=== PATIENT | female | born 1975 | race American Indian/Alaskan Native ===

== ENCOUNTER 2016-02-26 08:19 | Emergency (ER) | payer OTHER ==
[2016-02-26 09:09] LABS: Basophils % (Auto) 0.7 % (0.0-1.8); Eosinophils % (Auto) 0.5 % (0.0-4.3); Hematocrit 41.4 % (30.3-42.9); Hemoglobin 13.5 gm/dl (10.1-14.3); Mean Corpuscular HGB Conc 33 % (30-34); Mean Corpuscular Hemoglobin 29 pg (28-32); Mean Corpuscular Volume 89 fl (79-97); Platelet Count 292 K/mm3 (140-440); Red Blood Count 4.63 M/mm3 (3.65-5.03); Red Cell Distribution Width 15.5 % (13.2-15.2); White Blood Count 4.3 K/mm3 (4.5-11.0)
[2016-02-26 09:33] LABS: Alanine Aminotransferase 27 units/L (7-56); Albumin 3.6 g/dL (3.9-5); Albumin/Globulin Ratio 1.3 %; Alkaline Phosphatase 45 units/L (35-129); Anion Gap 19 mmol/L; Bilirubin,Total 0.6 mg/dL (0.1-1.2); Blood Urea Nitrogen 5 mg/dL (7-17); Calcium 8.8 mg/dL (8.4-10.2); Carbon Dioxide 24 mmol/L (22-30); Chloride 98.4 mmol/L (98-107); Glucose 108 mg/dL (65-100); Lipase 9 units/L (13-60); Potassium 3.2 mmol/L (3.6-5.0); Sodium 138 mmol/L (137-145); Total Protein 6.4 g/dL (6.3-8.2)
[2016-02-26] MEDS ORDERED: ZOFRAN ONE ×2 (09:45→12:16)
[2016-02-26] MEDS ORDERED: ZOFRAN IV ONE ×2 (09:46→12:20)
[2016-02-26] MEDS ORDERED: NACL 0.9% 1000 ML 1,000 ML ONE (09:48)
[2016-02-26] MEDS ORDERED: NACL 0.9% 1000 ML 1,000 ML IV ONE (09:56)
[2016-02-26 10:09] LABS: Bacteria,Urine 1+ /HPF (Negative); Bilirubin,Urine NEG (Negative); Blood,Urine NEG (Negative); Ketones,Urine NEG (Negative); Leukocyte Esterase,Urine TR (Negative); Mucus,Urine 3+ /HPF; Nitrite,Urine NEG (Negative)
--- NOTE | 2016-02-26 11:01 | Emergency Department Report ---
HPI - General Chief Complaint: Abdominal Pain Time Seen by Provider: 02/26/16 10:54 - HPI HPI: Chief complaint: Muscular pain HPI: Patient is a 40-year-old female who had a gastric sleeve placed 6 months ago and states she's been sick ever since. Patient has been worked up by her surgeon and her primary care doctor and her gastric sleeve is functioning as it should she just is having the rare side effect of abdominal pain and nausea. Patient is not here for that stay but rather states for the last 3 days she's been having pain to her legs and arms and feet. Describes it as a sharp pain. There is no swelling or edema. There is no fever or erythema. Patient is not on any cholesterol medications. Patient does not have diabetes. Patient states she cannot take morphine but can take Dilaudid Mode of arrival: private car Source: Patient Began: 3 days Duration: 3 days Context: See above. Quality: Sharp Severity: 10 out of 10 Improved with: Nothing Worsened with: Palpation Associated signs and symptoms: See above ED Past Medical Hx - Past Medical History Previous Medical History?: Yes Additional medical history: Internal hematomas from gallbladder surgery - Surgical History Past Surgical History?: Yes Hx Cholecystectomy: Yes Additional Surgical History: Gastric sleeve - Social History Smoking Status: Never Smoker Substance Use Type: Non Opiate Pain, Prescribed - Medications Home Medications: Home Medications Medication Instructions Recorded Confirmed Last Taken Type traMADol [Ultram 50 MG tab] 50 mg PO Q6HR PRN #10 tablet 02/26/16 Unknown Rx ED Review of Systems ROS: Stated complaint: ABD PAIN /FEET/LEG PAIN Other details as noted in HPI ROS Constitutional: No fever ENT: No uri symptoms Cardiovascular: No chest pain Respiratory: No sob or cough GI: No diarrhea, chronic nausea : No dysuria frequency or urgency, Skin: No rash Neuro: No focal weakness or numbness Psych: No depression Ye/lymph: No edema Physical Exam - Physical Exam Vital Signs: Vital Signs 02/26/16 02/26/16 02/26/16 08:30 09:16 09:31 Temperature 98.3 F Pulse Rate 150 H 112 H Respiratory 20 13 Rate Blood Pressure 155/121 145/93 145/93 O2 Sat by Pulse 99 100 Oximetry Physical Exam: GENERAL: The patient is well-developed well-nourished . HEENT: Normocephalic. Atraumatic. Extraocular motions are intact. Patient has moist mucous membranes. NECK: Supple. No meningitic signs are noted. There is no adenopathy noted. CHEST/LUNGS: Clear to auscultation. There is no respiratory distress noted. HEART/CARDIOVASCULAR: Regular. There is no tachycardia. There is no gallop rub or murmur. ABDOMEN: Abdomen is soft, nontender. Patient has normal bowel sounds. There is no abdominal distention. SKIN: There is no rash. There is no edema. There is no diaphoresis. NEURO: The patient is awake, alert, and oriented. The patient is cooperative. The patient has no focal neurologic deficits. The patient has normal speech. MUSCULOSKELETAL: There is no deformity. Patient complains of tenderness with palpation. There is no limitation range of motion. There is no evidence of acute injury. ED Course Vital Signs 02/26/16 02/26/16 02/26/16 08:30 09:16 09:31 Temperature 98.3 F Pulse Rate 150 H 112 H Respiratory 20 13 Rate Blood Pressure 155/121 145/93 145/93 O2 Sat by Pulse 99 100 Oximetry - Reevaluation(s) Reevaluation #1: 02/26/16 11:33 Patient offered Reglan but states it makes her heart rate too fast. Patient is allergic to Toradol. Patient states morphine gives her indigestion. Patient will take Percocet for her pain. Reevaluation #2: 02/26/16 11:34 Patient given a liter of normal saline and Zofran prior to my evaluation. Patient will be given a liter with 20 of potassium and 40 mEq of oral potassium. Reevaluation #3: 02/26/16 14:36 Patient given 1 mg of Dilaudid. ED Medical Decision Making - Lab Data Result diagrams: 02/26/16 08:58 02/26/16 08:58 Laboratory Tests 02/26/16 02/26/16 08:58 09:37 Lipase 9 L Ur Specific [place] 1.035 H Urine Protein 30 mg/dl Ur Leukocyte Esterase Tr Urine WBC (Auto) 6.0 Urine RBC (Auto) 7.0 U Epithel Cells (Auto) 3.0 Urine HCG, Qual Negative Critical care attestation.: If time is entered above; I have spent that time in minutes in the direct care of this critically ill patient, excluding procedure time. ED Disposition Clinical Impression: Hypokalemia, Neuropathy Disposition: DISCHARGED TO HOME OR SELFCARE Is pt being admited?: No Does the pt Need Aspirin: No Condition: Stable Instructions: Hypokalemia (ED) Additional Instructions: Continue current medications and follow up with your primary care doctor on Sunday. Prescriptions: traMADol [Ultram 50 MG tab] 50 mg PO Q6HR PRN #10 tablet PRN Reason: Pain Referrals: BERNADETTE HIGGINS MD [Primary Care Provider] - 2-3 Days Time of Disposition: 14:36
[2016-02-26] MEDS ORDERED: K-DUR PO ONE (11:03)
[2016-02-26] MEDS ORDERED: MORPHINE IV ONE (11:05)
[2016-02-26] MEDS ORDERED: POTASSIUM CHLORIDE FEEDTUBE ONE (11:17)
[2016-02-26] MEDS ORDERED: PERCOCET 5/325 ONE (11:26)
[2016-02-26] MEDS ORDERED: PERCOCET 5/325 PO ONE (11:30)
[2016-02-26 11:34] LABS: Magnesium 1.6 mg/dL (1.7-2.3); Phosphorous 3.4 mg/dL (2.5-4.5)
[2016-02-26] MEDS ORDERED: NS/KCL 20MEQ 1,000 ML IV SCH (12:00)
[2016-02-26] MEDS ORDERED: DILAUDID ONE (12:59)
[2016-02-26 16:14] VITALS: BP 116/69
== END 2016-02-26 16:33 | disposition home or self-care (01) ==
LOC: ED 08:19
DX: E87.6 Hypokalemia (principal); G62.9 Polyneuropathy, unspecified
CPT/HCPCS: 36415; 80053; 81001; 81025; 83690; 83735; 84100; 85025; 96361; 96374; 96376; 99284; J1170; J2405; J7030; J2270